=== PATIENT | male | born 1935 | race Caucasian/White ===

== ENCOUNTER → 2018-05-16 14:31 | Outpatient (CLI) | payer MEDICARE, SELFPAY ==
[2018-05-16 15:30] LABS: Add Manual Diff / Slide Review NO; Basophils Percent Auto 0.4 % (0-2); Eosinophils Percent Auto 5.3 % (2-4); Hematocrit 46.4 % (41-53); Hemoglobin 15.9 g/dL (13.5-17.5); Lymphocytes Percent Auto 25.7 % (25-40); Mean Corpuscular HGB Conc 34.2 % (30-36); Mean Corpuscular Hemoglobin 31.2 PG (26-34); Mean Corpuscular Volume 91.2 fL (80-100); Monocytes Percent Auto 7.4 % (3-14); Neutrophils Absolute Auto 4500 /uL (3000-5900); Neutrophils Percent Auto 61.2 % (50-75); Platelet Count 153 X10^3/uL (150-400); Red Blood Cell Count 5.09 X10^6/uL (4.5-5.9); Red Cell Distribution Width 13.3 % (11.6-14.8); White Blood Cell Count 7.3 X10^3/uL (4.5-11.0)
[2018-05-16 15:50] LABS: Erythrocyte Sedimentation Rate 4 MM/HR (0-15)
[2018-05-16 15:53] LABS: HEMOLYSIS 16 (0-50); Iron 71 ug/dL (49-181)
[2018-05-16 15:59] LABS: Alanine Aminotransferase 53 IU/L (21-72); Albumin 4.3 g/dL (3.5-5.0); Albumin Globulin Ratio 1.7 (1.0-2.8); Alkaline Phosphatase 67 U/L (38-126); Aspartate Aminotransferase 32 IU/L (17-59); BUN Creatinine Ratio 19.2 (6-22); Bilirubin Total 0.7 mg/dL (0.2-1.3); Blood Urea Nitrogen 23 mg/dL (9-20); Carbon Dioxide 30 mmol/L (22-32); Chloride 103 mmol/L (98-107); Estimated Glomerular Filt Rate 57.8 mL/min (>60); Globulin 2.5 g/dL (1.7-4.1); Glucose 118 mg/dL (80-110); HEMOLYSIS < 15 (0-50); Potassium 3.9 mmol/L (3.4-5.1); Sodium 144 mmol/L (137-145); Total Protein 6.8 g/dL (6.3-8.2)
[2018-05-16 16:00] LABS: C-Reactive Protein Quant < 0.5 mg/dL (<1.0)
[2018-05-16 16:05] LABS: Percent Iron Saturation 27 % (20-50); Total Iron Binding Capacity 266 ug/dL (261-462); Transferrin 211 mg/dL (206-381)
[2018-05-16 16:11] LABS: Free T3, Triiodothyronine Free 3.27 pg/mL (2.77-5.27); Free T4, Direct Thyroxine 1.23 ng/dL (0.78-2.19)
[2018-05-16 16:24] LABS: Thyroid Stimulating Hormone 2.31 uIU/mL (0.47-4.68)
== END ==
PROVIDERS: PCP Internal Medicine; Visit Provider Internal Medicine
DX: E78.5 Hyperlipidemia, unspecified (principal); I10 Essential (primary) hypertension; I48.0 Paroxysmal atrial fibrillation; R42 Dizziness and giddiness; R53.83 Other fatigue; G62.9 Polyneuropathy, unspecified
CPT/HCPCS: 36415; 80053; 82728; 83540; 83550; 84439; 84443; 84481; 85025; 85651; 86140

== ENCOUNTER → 2019-09-13 10:28 | Outpatient (CLI) | payer MEDICARE, SELFPAY ==
[2019-09-13 11:06] LABS: Add Manual Diff / Slide Review NO; Basophils Absolute Auto 100 /uL (0-100); Basophils Percent Auto 0.8 % (0-2); Eosinophils Absolute Auto 300 /uL (0-450); Eosinophils Percent Auto 4.8 % (2-4); Hemoglobin 16.9 g/dL (13.5-17.5); Lymphocytes Absolute Auto 1700 /uL (1100-4500); Lymphocytes Percent Auto 25.1 % (25-40); Mean Corpuscular HGB Conc 33.8 % (30-36); Mean Corpuscular Hemoglobin 30.9 PG (26-34); Mean Corpuscular Volume 91.2 fL (80-100); Monocytes Absolute Auto 500 /uL (0-900); Monocytes Percent Auto 7.7 % (3-14); Neutrophils Absolute Auto 4300 /uL (1500-7000); Neutrophils Percent Auto 61.6 % (50-75); Platelet Count 154 X10^3/uL (150-400); Red Blood Cell Count 5.48 X10^6/uL (4.5-5.9); Red Cell Distribution Width 13.7 % (11.6-14.8); White Blood Cell Count 6.9 X10^3/uL (4.5-11.0)
[2019-09-13 11:40] LABS: Alanine Aminotransferase 28 IU/L (<50); Albumin 4.1 g/dL (3.5-5.0); Albumin Globulin Ratio 1.4 (1.0-2.8); Alkaline Phosphatase 85 U/L (38-126); Aspartate Aminotransferase 26 IU/L (17-59); BUN Creatinine Ratio 20.2 (6-22); Bilirubin Total 0.7 mg/dL (0.2-1.3); Blood Urea Nitrogen 22 mg/dL (9-20); Calcium 9.3 mg/dL (8.4-10.2); Carbon Dioxide 30 mmol/L (22-32); Chloride 102 mmol/L (98-107); Estimated Glomerular Filt Rate > 60.0 mL/min (>60); Globulin 2.9 g/dL (1.7-4.1); Glucose 131 mg/dL (80-110); HEMOLYSIS < 15 (0-50); Potassium 4.1 mmol/L (3.4-5.1); Sodium 139 mmol/L (137-145)
[2019-09-13 11:41] LABS: C-Reactive Protein Quant < 0.5 mg/dL (<1.0)
[2019-09-13 12:10] LABS: TSH w/ Reflex to FT4 4.02 uIU/mL (0.47-4.68)
== END ==
PROVIDERS: PCP Internal Medicine; Referring Provider Internal Medicine; Visit Provider Internal Medicine
DX: E78.5 Hyperlipidemia, unspecified (principal); G62.9 Polyneuropathy, unspecified; I10 Essential (primary) hypertension
CPT/HCPCS: 36415; 80053; 84443; 85025; 86140

== ENCOUNTER → 2020-06-20 10:34 | Outpatient (CLI) | payer MEDICARE, SELFPAY ==
[2020-06-20 11:18] LABS: Add Manual Diff / Slide Review NO; Basophils Absolute Auto 0 /uL (0-100); Basophils Percent Auto 0.5 % (0-2); Eosinophils Absolute Auto 300 /uL (0-450); Eosinophils Percent Auto 4.1 % (2-4); Hematocrit 46.3 % (41-53); Hemoglobin 15.2 g/dL (13.5-17.5); Lymphocytes Absolute Auto 1800 /uL (1100-4500); Mean Corpuscular Hemoglobin 29.9 PG (26-34); Mean Corpuscular Volume 90.7 fL (80-100); Monocytes Absolute Auto 500 /uL (0-900); Neutrophils Absolute Auto 5200 /uL (1500-7000); Neutrophils Percent Auto 66.4 % (50-75); Platelet Count 152 X10^3/uL (150-400); White Blood Cell Count 7.9 X10^3/uL (4.5-11.0)
[2020-06-20 11:32] LABS: Alanine Aminotransferase 28 IU/L (<50); Albumin 3.8 g/dL (3.5-5.0); Albumin Globulin Ratio 1.4 (1.0-2.8); Alkaline Phosphatase 89 U/L (38-126); Aspartate Aminotransferase 26 IU/L (17-59); BUN Creatinine Ratio 19.2 (6-22); Bilirubin Total 0.6 mg/dL (0.2-1.3); Blood Urea Nitrogen 20 mg/dL (9-20); Calcium 8.8 mg/dL (8.4-10.2); Carbon Dioxide 26 mmol/L (22-32); Chloride 106 mmol/L (98-107); Estimated Glomerular Filt Rate > 60.0 mL/min (>60); Globulin 2.7 g/dL (1.7-4.1); Glucose 137 mg/dL (80-110); HEMOLYSIS < 15 (0-50); Sodium 140 mmol/L (137-145); Total Protein 6.5 g/dL (6.3-8.2)
[2020-06-20 12:01] LABS: TSH w/ Reflex to FT4 4.05 uIU/mL (0.47-4.68)
== END ==
PROVIDERS: PCP Internal Medicine; Referring Provider Internal Medicine; Visit Provider Internal Medicine
DX: E78.5 Hyperlipidemia, unspecified (principal); I10 Essential (primary) hypertension; R53.81 Other malaise
CPT/HCPCS: 36415; 80053; 84443; 85025

== ENCOUNTER → 2020-09-24 15:15 | Outpatient (CLI) | payer MEDICARE, SELFPAY | PROVIDERS: PCP Internal Medicine; Referring Provider Physician Assistant; Visit Provider Family Medicine | DX: S91.114A Laceration without foreign body of right lesser toe(s) without damage to nail, initial encounter (principal); G60.9 Hereditary and idiopathic neuropathy, unspecified; Z48.01 Encounter for change or removal of surgical wound dressing; Z79.52 Long term (current) use of systemic steroids | CPT/HCPCS: 99203; 99213 ==

== ENCOUNTER → 2020-10-01 16:07 | Outpatient (CLI) | payer MEDICARE, SELFPAY | PROVIDERS: PCP Internal Medicine; Referring Provider Internal Medicine; Visit Provider Family Medicine | DX: S91.114A Laceration without foreign body of right lesser toe(s) without damage to nail, initial encounter (principal); Z79.52 Long term (current) use of systemic steroids | CPT/HCPCS: 11042 ==

== ENCOUNTER → 2020-10-08 10:54 | Outpatient (CLI) | payer MEDICARE, SELFPAY | PROVIDERS: PCP Internal Medicine; Referring Provider Internal Medicine; Visit Provider Family Medicine | DX: S91.114A Laceration without foreign body of right lesser toe(s) without damage to nail, initial encounter (principal); Z48.01 Encounter for change or removal of surgical wound dressing | CPT/HCPCS: 99213 ==

== ENCOUNTER → 2020-10-16 15:26 | Outpatient (CLI) | payer MEDICARE, SELFPAY | PROVIDERS: PCP Internal Medicine; Referring Provider Internal Medicine; Visit Provider Family Medicine | DX: S91.114A Laceration without foreign body of right lesser toe(s) without damage to nail, initial encounter (principal); G60.9 Hereditary and idiopathic neuropathy, unspecified; Z48.01 Encounter for change or removal of surgical wound dressing | CPT/HCPCS: 99213 ==

== ENCOUNTER → 2020-10-22 15:53 | Outpatient (CLI) | payer MEDICARE, SELFPAY | PROVIDERS: PCP Internal Medicine; Referring Provider Internal Medicine; Visit Provider Family Medicine | DX: S91.114D Laceration without foreign body of right lesser toe(s) without damage to nail, subsequent encounter (principal); G60.9 Hereditary and idiopathic neuropathy, unspecified; Z79.52 Long term (current) use of systemic steroids | CPT/HCPCS: 99212; 99213 ==

== ENCOUNTER 2021-01-09 10:55 | Emergency (ER) | payer MEDICARE, SELFPAY ==
[2021-01-09] VITALS (14 sets, daily range): BP systolic 103–190; BP diastolic 69–87; PULSE 53–71; RESP 10–22; TEMP 36.3; O2SAT 95–98; BMI 25.7
--- NOTE | 2021-01-09 11:21 | ED.FALL ---
HPI - Fall General Chief Complaint: Fall Stated Complaint: RT RIB PAIN POST FALL/LOW BLOOD PRESSURE 88/52 Time Seen by Provider: 01/09/21 11:07 Source: patient Mode of arrival: Wheelchair History of Present Illness HPI Narrative: The patient is an 85-year-old male who has history of orthostatic hypotension. Apparently this has been happening more frequently and he has been falling more. He fell twice already this week. He did hit his head he has an abrasion on top of his head. No loss of consciousness. Initially he had no pain but now feels like he has pain all over that is intermittent. says that he is usually not in pain. He takes Tylenol and Aleve for pain and does not seem to help. Related Data Home Medications Medication Instructions Recorded Confirmed diphenhydramine HCl 25 mg tablet 12.5 mg PO BEDTIME PRN tab 06/20/20 06/20/20 (Simply Sleep) Previous Rx's Medication Instructions Recorded fludrocortisone 0.1 mg tablet 0.1 mg PO DAILY #30 tab 06/20/20 tamsulosin 0.4 mg capsule 0.4 mg PO BID #180 cap 11/06/20 Allergies Allergy/AdvReac Type Severity Reaction Status Date / Time No Known Drug Allergies Allergy Verified 01/09/21 11:17 Review of Systems Review of Systems ROS Unobtainable: All systems reviewed & are unremarkable except as noted in HPI and below Constitutional Constitutional: Reports fatigue, Denies fever(s), Denies malaise and Reports weakness ENT Ears, Nose, Mouth, and Throat: Denies vertigo, Denies dizziness and Denies sinus pain Cardiovascular Cardiovascular: Denies chest pain and Denies irregular heart rhythm Respiratory Respiratory: Denies chest congestion and Denies cough Gastrointestinal Gastrointestinal: Denies abdominal pain, Denies nausea and Denies vomiting Genitourinary Genitourinary: Denies urinary frequency and Denies urinary hesitancy Musculoskeletal Musculoskeletal: Reports as per HPI Integumentary/Breasts Skin/Breast: Reports as per HPI Neurologic Neurologic: Denies vertigo, Denies dizziness and Reports weakness Endocrine Endocrine: Reports fatigue Patient History Medical History (Updated 01/09/21 @ 15:26 by Ashley Adams DO) Fissure in skin of foot Gastroesophageal reflux disease (02/04/11) Hyperlipidemia Hypertension Macular degeneration Paroxysmal atrial fibrillation (07/11/14) Peripheral neuropathy SCC (squamous cell carcinoma) Vertigo (06/13/15) Surgical History History of cataract removal with insertion of prosthetic lens History of colonoscopy with polypectomy (07/06/10) History of ERCP (06/07/14) History of laparoscopic cholecystectomy (06/04/14) History of left cataract surgery (05/21/16) History of right cataract surgery (10/16/08) Family History Other Ischemic heart disease Social History Smoking Status: Never smoker Smoking Status: Never smoker alcohol intake frequency: 0-2 drinks per day Substance Use Type: does not use Exam Initial Vital Signs Initial Vital Signs: Vital Signs Temperature 97.3 F L 01/09/21 11:13 Pulse Rate 59 L 01/09/21 11:13 Respiratory Rate 14 01/09/21 11:13 Blood Pressure 151/79 H 01/09/21 11:13 Pulse Oximetry 97 01/09/21 11:13 GENERAL: Alert pleasant 85-year-old male HEENT: Head abrasion noted on top of head no crepitations depressions or laceration,EOMI, pupils reactive, face symmetric, moist mucous membranes NECK: No vertebral tenderness no step-offs full flexion and extension CARDIOVASCULAR: Regular rate and rhythm without murmurs, rubs or gallops. RESPIRATORY: Breath sounds equal bilaterally, no wheezes rales or rhonchi. ABDOMEN: Soft, nontender. Normoactive bowel sounds all 4 quadrants. No guarding or rebound. BACK: No vertebral tenderness no step-off : No CVA tenderness EXTREMITIES: Normal range of motion, no clubbing or edema. 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 Course Orders Ordered: ED Orders 01/09/21 11:20 Complete Blood Count AUTO DIFF Stat Comprehensive Metabolic Panel Stat Lipase Stat Procalcitonin Stat Troponin & CK Cardiac Panel Stat 01/09/21 11:21 CT head/brain wo con Stat XR chest 1V Stat 01/09/21 11:42 XR lumbar spine 2-3V Stat 01/09/21 11:54 XR pelvis 1-2V Stat 01/09/21 13:41 EKG-12 Lead Stat Discontinued Medications Ketorolac Tromethamine (Ketorolac 30 Mg/Ml Vial) 30 mg IV NOW ONE Stop: 01/09/21 14:55 Last Admin: 01/09/21 15:19 Dose: 30 mg Documented by: SRINATH Vital Signs Vital signs: Vital Signs - 8 hr 01/09/21 12:29 01/09/21 12:30 01/09/21 13:00 Pulse Rate 59 L 60 55 L Respiratory Rate 17 Blood Pressure Pulse Oximetry 97 95 97 01/09/21 13:01 01/09/21 13:30 01/09/21 13:31 Pulse Rate 55 L 53 L 55 L Respiratory Rate 14 10 L 11 L Blood Pressure 156/72 H 162/73 H Pulse Oximetry 98 97 97 01/09/21 14:00 01/09/21 14:30 01/09/21 14:31 Pulse Rate 56 L 55 L 56 L Respiratory Rate 13 12 17 Blood Pressure 170/74 H 190/79 H Pulse Oximetry 97 97 98 01/09/21 14:33 01/09/21 15:00 01/09/21 15:01 Pulse Rate 58 L 57 L 58 L Respiratory Rate 19 13 16 Blood Pressure 188/87 H 176/81 H Pulse Oximetry 97 97 97 01/09/21 15:30 Pulse Rate 71 Respiratory Rate 22 Blood Pressure 103/69 Pulse Oximetry 97 MDM - Fall Lab Data Attestation: I reviewed the patient's lab results. Result diagrams: 01/09/21 11:20 01/09/21 11:20 Labs: Lab Results 01/09/21 01/09/21 01/09/21 Range/Units 11:20 11:20 11:20 WBC 7.7 (4.5-11.0) X10^3/uL RBC 5.27 (4.5-5.9) X10^6/uL Hgb 15.9 (13.5-17.5) g/dL Hct 47.7 (41-53) % MCV 90.6 (80-100) fL MCH 30.1 (26-34) PG MCHC 33.3 (30-36) % RDW 14.0 (11.6-14.8) % Plt Count 141 L (150-400) X10^3/uL Neut % (Auto) 69.3 (50-75) % Lymph % (Auto) 19.9 L (25-40) % [place] % (Auto) 7.6 (3-14) % Eos % (Auto) 2.6 (2-4) % Baso % (Auto) 0.6 (0-2) % Neut # (Auto) 5300 (5830-4025) /uL Lymph # (Auto) 1500 (2462-7098) /uL [place] # (Auto) 600 (0-900) /uL Eos # (Auto) 200 (0-450) /uL Baso # (Auto) 0 (0-100) /uL Sodium 138 (137-145) mmol/L Potassium 4.1 (3.4-5.1) mmol/L Chloride 106 (98-107) mmol/L Carbon Dioxide 28 (22-32) mmol/L BUN 16 (9-20) mg/dL Creatinine 1.00 (0.66-1.25) mg/dL Estimated GFR > 60.0 (>60) mL/min BUN/Creatinine Ratio 16.0 (6-22) Glucose 122 H (80-110) mg/dL Calcium 8.9 (8.4-10.2) mg/dL Total Bilirubin 1.1 (0.2-1.3) mg/dL AST 28 (17-59) IU/L ALT 24 (<50) IU/L Alkaline Phosphatase 82 (38-126) U/L Total Creatine Kinase 88 (55-170) U/L CK-MB (CK-2) TNP CK-MB (CK-2) Rel Index TNP Troponin I < 0.012 (0.01-0.034) ng/mL Total Protein 6.3 (6.3-8.2) g/dL Albumin 3.5 (3.5-5.0) g/dL Globulin 2.8 (1.7-4.1) g/dL Albumin/Globulin Ratio 1.3 (1.0-2.8) Lipase < 10 L (23-300) U/L Procalcitonin 0.07 (<0.5) ng/mL Imaging Data Chest x-ray: Radiologist's Impression: PROCEDURE: XR CHEST 1V INDICATIONS: fall TECHNIQUE: One view of the chest was acquired. COMPARISON: [facility], , CHEST 2 VIEW, 01/05/2013, 10:06. FINDINGS: Surgical changes and devices: None. Lungs and pleura: Lungs are clear. No pleural effusions or pneumothorax. Mediastinum: Mediastinal contours appear normal. Heart size is normal. Bones and chest wall: No suspicious bony lesions. Overlying soft tissues appear unremarkable. IMPRESSION: Reduced inspiratory volume, no trauma found. Dictated by: Julian Barnett M.D. on 01/09/2021 at 12:35 Extremity x-ray #2: Radiologist's Impression: PROCEDURE: XR LUMBAR SPINE 2-3V INDICATIONS: fall TECHNIQUE: 3 views of the lumbar spine were acquired. COMPARISON: [facility], MR, L-SPINE WITHOUT CONTRAST, 02/07/2009, 8:12. [facility], RG, XR ABDOMEN KUB, 03/20/2001, 12:51. FINDINGS: Bones: 5 [id number] vertebrae are present. There is grade 1 retrolisthesis of L2 on L3. No vertebral body compression fractures. No suspicious bony lesions. Jolnuyzq-wl-[id number] degenerative disc disease and facet arthropathy throughout the lumbar spine. Baastrups disease with enlarged spinous processes. Soft tissues: Surgical clips in the right upper quadrant. Overlying bowel gas pattern is normal. Moderate to severe atherosclerotic calcifications. Multiple pelvic phleboliths. IMPRESSION: 1. No acute osseous abnormalities. 2. Moderate to severe degenerative changes in lumbar spine. Dictated by: Mariola Erickson M.D. on 01/09/2021 at 12:16 Approved by: Mariola Erickson M.D. on 01/09/2021 at 12:20 Extremity x-ray #3: Radiologist's Impression: PROCEDURE: XR PELVIS 1-2V INDICATIONS: fall TECHNIQUE: 1 view(s) of the pelvis acquired. COMPARISON: RG, XR ABDOMEN KUB, 03/20/2001, 12:51. FINDINGS: Bones: No fractures or dislocations. No suspicious bony lesions. Moderate degenerative joint disease in hips and sacroiliac joints bilaterally. Soft tissues: Visualized bowel gas pattern is normal. No suspicious soft tissue calcifications. IMPRESSION: No acute osseous abnormalities. Dictated by: Mariola Erickson M.D. on 01/09/2021 at 12:15 CT scan - head: Radiologist's Impression: PROCEDURE: CT HEAD/BRAIN WO CON INDICATIONS: fall TECHNIQUE: Noncontrast 4.5 mm thick angled axial sections acquired from the foramen magnum to the vertex, with coronal and sagittal reformats. For radiation dose reduction, the following was used: automated exposure control, adjustment of mA and/or kV according to patient size. COMPARISON: None. FINDINGS: Image quality: Excellent. CSF spaces: Basal cisterns are patent. No extra-axial fluid collections. Ventricles are normal in size and shape. Brain: No midline shift. No intracranial masses or hemorrhage. Boland-white matter interface is normal. Global cerebral volume loss and chronic microvascular ischemic changes. Skull and face: Calvarium and visualized facial bones are intact, without suspicious lesions. Sinuses: Visualized sinuses and mastoids are clear. IMPRESSION: No acute intracranial abnormality. Dictated by: Jono Fournier M.D. on 01/09/2021 at 11:54 ECG Data Attestation: I personally reviewed and interpreted this ECG as follows: Prior ECG tracings: available for review Interpretation: EKG 1. Sinus rhythm rate 63 p.r. interval [address] changes or T-wave inversions similar to previous EKG in 2014 EKG 2. Normal sinus rhythm with artifact rate 63 p.r. interval 298 QRS [address] changes similar to prior EKG MDM Narrative Medical decision making narrative: The patient overall appears well. apparently states that he does get some orthostatic hypotension which is common for him. He has no injuries from his falls. He was able to stand up without difficulty. He has a wheelchair and a walker that he gets around by. They overall feel ready and able to go home. No sign of infection or electrolyte abnormalities to cause increase in falls. Discharge Plan Departure Patient Disposition: Home Clinical Impression: Fall Qualifiers: Encounter type: initial encounter Qualified Code(s): W19.XXXA - Unspecified fall, initial encounter Instructions: How to Prevent Falls Activity Restrictions/Additional Instructions: *You have been diagnosed with falls *What to do: go slowly, use walker and wheel chair as needed *Continue to take medications as directed Tylenol 650 mg every 4-6 hours if needed for gwot-ms-urgsnrwk pain *Follow up with your primary care provider in 2-3 days *Return to ER if you should have increasing falls, weakness through confusion or any new, worsening or concerning symptoms Prescriptions: No Action fludrocortisone 0.1 mg tablet 0.1 mg PO DAILY Qty: 30 RF: 3 tamsulosin 0.4 mg capsule 0.4 mg PO BID Qty: 180 RF: 1 diphenhydramine HCl [Simply Sleep] 25 mg tablet 12.5 mg PO BEDTIME PRNRF: 0 Referrals: Matti John MD [Primary Care Provider] -
[2021-01-09 11:37] LABS: Add Manual Diff / Slide Review NO; Basophils Absolute Auto 0 /uL (0-100); Basophils Percent Auto 0.6 % (0-2); Eosinophils Absolute Auto 200 /uL (0-450); Eosinophils Percent Auto 2.6 % (2-4); Hematocrit 47.7 % (41-53); Hemoglobin 15.9 g/dL (13.5-17.5); Lymphocytes Absolute Auto 1500 /uL (1100-4500); Lymphocytes Percent Auto 19.9 % (25-40); Mean Corpuscular HGB Conc 33.3 % (30-36); Mean Corpuscular Hemoglobin 30.1 PG (26-34); Mean Corpuscular Volume 90.6 fL (80-100); Monocytes Absolute Auto 600 /uL (0-900); Monocytes Percent Auto 7.6 % (3-14); Neutrophils Absolute Auto 5300 /uL (1500-7000); Neutrophils Percent Auto 69.3 % (50-75); Platelet Count 141 X10^3/uL (150-400); Red Blood Cell Count 5.27 X10^6/uL (4.5-5.9); White Blood Cell Count 7.7 X10^3/uL (4.5-11.0)
--- NOTE | 2021-01-09 11:42 | DI.RAD.S_ITS ---
PROCEDURE: XR LUMBAR SPINE 2-3V INDICATIONS: fall TECHNIQUE: 3 views of the lumbar spine were acquired. COMPARISON: , MR, L-SPINE WITHOUT CONTRAST, 02/07/2009, 8:12. , RG, XR ABDOMEN KUB, 03/20/2001, 12:51. FINDINGS: Bones: 5 mwb-vyu-jfchmoq vertebrae are present. There is grade 1 retrolisthesis of L2 on L3. No vertebral body compression fractures. No suspicious bony lesions. Oyzhpxvy-cp-jlrpxv degenerative disc disease and facet arthropathy throughout the lumbar spine. Baastrups disease with enlarged spinous processes. Soft tissues: Surgical clips in the right upper quadrant. Overlying bowel gas pattern is normal. Moderate to severe atherosclerotic calcifications. Multiple pelvic phleboliths. IMPRESSION: 1. No acute osseous abnormalities. 2. Moderate to severe degenerative changes in lumbar spine. Dictated by: Mariola Erickson M.D. on 01/09/2021 at 12:16 Approved by: Mariola Erickson M.D. on 01/09/2021 at 12:20
--- NOTE | 2021-01-09 11:54 | DI.RAD.S_ITS ---
PROCEDURE: XR PELVIS 1-2V INDICATIONS: fall TECHNIQUE: 1 view(s) of the pelvis acquired. COMPARISON: [facility], XR ABDOMEN KUB, 03/20/2001, 12:51. FINDINGS: Bones: No fractures or dislocations. No suspicious bony lesions. Moderate degenerative joint disease in hips and sacroiliac joints bilaterally. Soft tissues: Visualized bowel gas pattern is normal. No suspicious soft tissue calcifications. IMPRESSION: No acute osseous abnormalities. Dictated by: Mariola Erickson M.D. on 01/09/2021 at 12:15 Approved by: Mariola Erickson M.D. on 01/09/2021 at 12:16
[2021-01-09 12:08] LABS: Alanine Aminotransferase 24 IU/L (<50); Albumin 3.5 g/dL (3.5-5.0); Albumin Globulin Ratio 1.3 (1.0-2.8); Alkaline Phosphatase 82 U/L (38-126); Aspartate Aminotransferase 28 IU/L (17-59); Bilirubin Total 1.1 mg/dL (0.2-1.3); Blood Urea Nitrogen 16 mg/dL (9-20); Calcium 8.9 mg/dL (8.4-10.2); Carbon Dioxide 28 mmol/L (22-32); Chloride 106 mmol/L (98-107); Creatine Kinase 88 U/L (55-170); Estimated Glomerular Filt Rate > 60.0 mL/min (>60); Globulin 2.8 g/dL (1.7-4.1); Glucose 122 mg/dL (80-110); HEMOLYSIS 41 (0-50); Potassium 4.1 mmol/L (3.4-5.1); Sodium 138 mmol/L (137-145); Total Protein 6.3 g/dL (6.3-8.2)
[2021-01-09 12:15] LABS: Lipase < 10 U/L (23-300)
[2021-01-09 12:20] LABS: Troponin I < 0.012 ng/mL (0.01-0.034)
[2021-01-09 12:25] LABS: Procalcitonin 0.07 ng/mL (<0.5)
[2021-01-09] MEDS: KETOROLAC 30 MG/ML VIAL IV (15:19)
--- NOTE | 2021-01-09 15:45 | PC.NURSE ---
Pt and spouse state pt has weakness with walking and he is not up to trying r/t pain, per Dr. Alton betancur to [facility] for ambulation trial. Pt denied dizziness with standing and weakness noted stated to be at baseline by .
== END 2021-01-09 15:49 | disposition home or self-care (01) ==
PROVIDERS: Emergency Provider Emergency Medicine; PCP Internal Medicine
DX: S00.01XA Abrasion of scalp, initial encounter (principal); I95.1 Orthostatic hypotension; R07.9 Chest pain, unspecified; W19.XXXA Unspecified fall, initial encounter
CPT/HCPCS: 36415; 70450; 71045; 72100; 72170; 80053; 82550; 83690; 84145; 84484; 85025; 93005; 96374; 99284; 99285; J1885